=== PATIENT | female | born 1930 | race Caucasian/White ===

== ENCOUNTER 2017-11-24 17:41 | Emergency (ER) | payer MEDICARE, OTHER ==
--- NOTE | 2017-11-24 19:13 | ED ---
Throat Pain/Nasal Congestion - HPI Summary HPI Summary: This patient is an 86 year old F presenting to [facility] accompanied by daughter with a chief complaint of blurred vision that began yesterday. The patient rates the pain 0/10 in severity. Symptoms aggravated by nothing. Symptoms alleviated by nothing. Patient reports eye pain and eye swelling. Pt reports that she was discharged from [facility] yesterday following a stay in the ICU for CHF. Daughter reports that patient fell on 11/03/2017 and then began experiencing difficulty swallowing and dyspnea causing her to seek evaluation at [facility]. Pt believes she was inadvertently given Prednisone eye drops during her stay in the ICU. - History of Current Complaint Chief Complaint: EDEyeProblem Time Seen by Provider: 11/24/17 19:01 Hx Obtained From: Patient, Family/Entertainment Usher Onset/Duration: Sudden Onset, Lasting Days, Still Present Severity: Mild Cough: None - Allergies/Home Medications Allergies/Adverse Reactions: Allergies Allergy/AdvReac Type Severity Reaction Status Date / Time No Known Allergies Allergy Verified 11/24/17 17:48 PMH/Surg Hx/FS Hx/Imm Hx Previously Healthy: No Endocrine/Hematology History: Denies: Hx Diabetes Cardiovascular History: Reports: Hx Congestive Heart Failure, Hx Hypertension - Immunization History Immunizations Up to Date: Yes Infectious Disease History: No Infectious Disease History: Denies: Traveled Outside the [place] in Last 30 Days - Social History Occupation: Retired Lives: With Family Alcohol Use: None Hx Substance Use: No Substance Use Type: Reports: None Hx Tobacco Use: No Smoking Status (MU): Never Smoked Tobacco Review of Systems Negative: Fever Positive: Blurred Vision, Other - Negative eye pain and eye swelling All Other Systems Reviewed And Are Negative: Yes Physical Exam - Summary Physical Exam Summary: Appearance: Well-appearing, Well-nourished, lying in bed comfortably Skin: Warm, dry, no obvious rash Eyes: sclera anicteric, no conjunctival pallor. Pupils are equal and round, reactive to light. Extraocular movements are intact. There is no haziness in the anterior chamber. There is no sign of conjunctivitis. Visual acuity was measured at approximately 20/40 in each eye. ENT: mucous membranes moist, pharynx appears normal Neck: Supple, nontender Respiratory: Clear to auscultation, no signs of respiratory distress Cardiovascular: Normal S1, S2. No murmurs. Normal distal pulses in tibial and radial bilaterally. Abdomen: Soft, nontender, normal active bowel sounds present Musculoskeletal: Normal, Strength/ROM Intact Neurological: A&Ox3, awake and alert, mentation is normal, speech is fluent and appropriate Psychiatric: affect is normal, does not appear anxious or depressed Triage Information Reviewed: Yes Vital Signs On Initial Exam: Initial Vitals Temp Pulse Resp BP Pulse Ox 98.4 F 89 20 143/83 93 11/24/17 17:44 11/24/17 17:44 11/24/17 17:44 11/24/17 17:44 11/24/17 17:44 Vital Signs Reviewed: Yes Diagnostics - Vital Signs Vital Signs Temp Pulse Resp BP Pulse Ox 11/24/17 17:44 98.4 F 89 20 143/83 93 - Laboratory Lab Statement: Any lab studies that have been ordered have been reviewed, and results considered in the medical decision making process. EENT Course/Dx - Diagnoses Provider Diagnoses: Vision problem Discharge - Sign-Out/Discharge Documenting (check all that apply): Patient Departure - Discharge Plan Condition: Good Disposition: HOME Referrals: No Primary Care Phys,NOPCP [Primary Care Provider] - Additional Instructions: I do not see any emergent problem with your eyes. I suspect the decline in far acuity may be related to fluid shifts in your system while you were treated for congestive heart failure. It should resolve on its own over the next few days. If not, contact your eye doctor as he or she has better equipment and expertise to evaluate your problem than we have here in the ED. - Billing Disposition and Condition Condition: GOOD Disposition: Home - Attestation Statements Document Initiated by Scribe: Yes Documenting Scribe: Rocío Beasley Provider For Whom Rosemary is Documenting (Include Credential): Jorge Yeh MD Scribe Attestation: I, Rocío Beasley, scribed for Jorge Yeh MD on 11/24/17 at 1917. Scribe Documentation Reviewed: Yes Provider Attestation: The documentation as recorded by the Rocío jacobo accurately reflects the service I personally performed and the decisions made by me, Jorge Yeh MD
[2017-11-24 19:34] VITALS: BP 128/75
== END 2017-11-24 19:46 | disposition home or self-care (01) ==
LOC: ED 17:41
DX: H53.8 Other visual disturbances (principal); Z91.81 History of falling
CPT/HCPCS: 99282

== ENCOUNTER 2017-11-27 04:18 | Observation (INO) | payer OTHER ==
--- NOTE | 2017-11-27 05:06 | ED ---
HPI Chest Pain - HPI Summary HPI Summary: Pt is a 86 year old female presenting to the ED with a chief complaint of. Pt tried going to bed at around 2200 or so, could not fall asleep, had some chest and abd pain at around midnight. She got up and sat in her chair, the pain sort of went away, so she thought she could lay down and go to sleep, then she had pain in her upper back. Pt did not feel sweaty, nausea, or SOB. The pt has not had any other pain since the initial episode, which lasted about 10 minutes. The pt denies any trouble like this before, but she does note that she has CHF. The pts daughter relayed information about her past issues with pain medicines that she was prescribed, including edema and trouble swallowing. - History of Current Complaint Chief Complaint: EDAbdPain Hx Obtained From: Patient, Family/Nursing Manager - daughter Onset/Duration: Started Hours Ago, Resolved Timing: Lasting Minutes - 10-15 Initial Severity: Mild Current Severity: Mild Pain Intensity: 0 Pain Scale Used: 0-10 Numeric Chest Pain Radiates: Yes Chest Pain Radiates To:: Back Aggravating Factor(s): Nothing Alleviating Factor(s): Rest Associated Signs and Symptoms: Positive: Chest Pain, Back Pain. Negative: Fever , Diaphoresis, Nausea - Allergy/Home Medications Allergies/Adverse Reactions: Allergies Allergy/AdvReac Type Severity Reaction Status Date / Time No Known Allergies Allergy Verified 11/24/17 17:48 Home Medications: Home Medications Aspirin [Shira Aspirin EC Low Dose 81 MG] 81 mg PO DAILY 11/27/17 [History Confirmed 11/27/17] Biotin 5,000 mcg PO DAILY 11/27/17 [History Confirmed 11/27/17] Brimonidine P 0.15%(NF) [Alphagan P 0.15%(NF)] 1 drop BOTH EYES BID 11/27/17 [ History Confirmed 11/27/17] Brinzolamide 1% OPHTH SHIMA(NF) [Azopt 1% OPHTH SHIMA(NF)] 1 drop LEFT EYE BID 11/27 [History Confirmed 11/27/17] Calcium Carbonate/Vitamin D3 [Calcium 600-Vit D3 500 Softgel] 2 cap PO DAILY 05/15 [History Confirmed 11/27/17] Furosemide 1 tab PO SEE INSTRUCTIONS 11/27/17 [History Confirmed 11/27/17] Levothyroxine TAB* 88 mcg PO SEE INSTRUCTIONS 11/27/17 [History Confirmed ] Levothyroxine TAB* [Synthroid 75 MCG TAB*] 75 mcg PO SEE INSTRUCTIONS 11/27/17 [ History Confirmed 11/27/17] Metoprolol Tartrate TAB* [Lopressor TAB*] 12.5 mg PO BID 11/27/17 [History Confirmed 11/27/17] Multivitamin [Multiple Vitamins] 1 tab PO DAILY 11/27/17 [History Confirmed 05/15] [place]-3 Fatty Acids/Fish Oil [[place] 3 1,000 mg Softgel] 2 cap PO DAILY 11/27/17 [History Confirmed 11/27/17] Potassium Chlor TAB* [Potassium Chlor TAB 20 MEQ*] 20 meq PO SEE INSTRUCTIONS [History Confirmed 11/27/17] Simvastatin 1 tab PO DAILY 11/27/17 [History Confirmed 11/27/17] Travoprost Z 0.004% OPHTH (NF) [Travatan Z 0.004% OPTH (NF)] 1 drop BOTH EYES BEDTIME 11/27/17 [History Confirmed 11/27/17] Warfarin Sodium 3 mg PO SEE INSTRUCTIONS 11/27/17 [History Confirmed 11/27/17] PMH/Surg Hx/FS Hx/Imm Hx Previously Healthy: No Endocrine/Hematology History: Denies: Hx Diabetes Cardiovascular History: Reports: Hx Congestive Heart Failure, Hx Hypertension - Immunization History Date of Tetanus Vaccine: unk Date of Influenza Vaccine: fall 2016 Infectious Disease History: No Infectious Disease History: Denies: Traveled Outside the [place] in Last 30 Days - Family History Known Family History: Positive: Hypertension - Social History Alcohol Use: None Hx Substance Use: No Substance Use Type: Reports: None Hx Tobacco Use: No Smoking Status (MU): Never Smoked Tobacco Review of Systems Negative: Fever Positive: Chest Pain Negative: Shortness Of Breath Positive: Abdominal Pain. Negative: Nausea All Other Systems Reviewed And Are Negative: Yes Physical Exam - Summary Physical Exam Summary: Appearance: Well-appearing, Well-nourished, lying in bed comfortably Skin: Warm, dry, no obvious rash Eyes: sclera anicteric, no conjunctival pallor ENT: mucous membranes moist, pharynx appears normal Neck: Supple, nontender Respiratory: Clear to auscultation, no signs of respiratory distress Cardiovascular: Normal S1, S2. No murmurs. Normal distal pulses in tibial and radial bilaterally. Abdomen: Soft, nontender, normal active bowel sounds present Musculoskeletal: Normal, Strength/ROM Intact Neurological: A&Ox3, awake and alert, mentation is normal, speech is fluent and appropriate Psychiatric: affect is normal, does not appear anxious or depressed Triage Information Reviewed: Yes Vital Signs On Initial Exam: Initial Vitals Temp Pulse Resp BP Pulse Ox 97.2 F 86 24 121/50 95 11/27/17 04:20 11/27/17 04:20 11/27/17 04:20 11/27/17 04:20 11/27/17 04:20 Vital Signs Reviewed: Yes Diagnostics - Vital Signs Vital Signs Temp Pulse Resp BP Pulse Ox 11/27/17 04:20 97.2 F 86 24 121/50 95 - Laboratory Result Diagrams: 11/29/17 05:44 11/29/17 05:44 Lab Statement: Any lab studies that have been ordered have been reviewed, and results considered in the medical decision making process. - EKG No standard instances Cardiac Rate: NL - 90 bpm EKG Rhythm: Atrial Fibrillation ST Segment: Normal Ectopy: None EKG Interpretation: Atrial fibrillation, rate 90 bpm. Chest Pain Course/Dx - Course Course Of Treatment: This is an 86-year-old woman was well until about 3 hours ago when she had developed the abrupt onset of chest discomfort radiating to the upper back. This lasted about 10 or 15 minutes and improved when she got up and sat in a chair. Since then it has not recurred. There are no other associated symptoms. She will be ruled out by serial enzymes. She appears quite stable at the present time and is pain-free, and thus does not require any specific therapy at the moment. - Diagnoses Provider Diagnoses: CHF (congestive heart failure), Chest pain, Afib Discharge - Sign-Out/Discharge Documenting (check all that apply): Patient Departure - Discharge Plan Condition: Fair Disposition: ADMITTED TO [facility] - Billing Disposition and Condition Condition: FAIR Disposition: Admitted to [facility] - Attestation Statements Document Initiated by Scribe: Yes Documenting Scribe: Serena Escobar Provider For Whom Aliciaibe is Documenting (Include Credential): Jorge Yeh MD. Scribe Attestation: I, Serena Escobar, scribed for Jorge Yeh MD. on 12/01/17 at 1030. Scribe Documentation Reviewed: Yes Provider Attestation: The documentation as recorded by the scribe, Serena Escobar accurately reflects the service I personally performed and the decisions made by me, Jorge Yeh MD.
[2017-11-27 06:19] LABS: ABS Basophils 0.1 10^3/ul (0-0.2); ABS Eosinophils 0.2 10^3/ul (0-0.6); ABS Lymphocytes 0.8 10^3/ul (1.0-4.8); ABS Monocytes 0.5 10^3/ul (0-0.8); ABS Neutrophils 4.2 10^3/ul (1.5-7.7); ABS Nucleated RBC 0 10^3/ul; Hematocrit 32 % (35-47); Hemoglobin 10.7 g/dl (12.0-16.0); Lymphocyte % 14.1 % (25-47); Mean Corpuscular HGB Conc 34 g/dl (31-36); Mean Corpuscular Hemoglobin 27 pg (27-31); Mean Corpuscular Volume 81 fL (80-97); Mean Platelet Volume 8.6 um3 (7.4-10.4); Nucleated Red Blood Cells % 0; Platelet Count 177 10^3/ul (150-450); Red Blood Count 3.94 10^6/ul (4.00-5.40); Red Cell Distribution Width 18 % (10.5-15); White Blood Count 5.8 10^3/ul (3.5-10.8)
[2017-11-27 06:22] LABS: EGFR Non-African American 51.7 (>60)
--- NOTE | 2017-11-27 07:02 | ED ---
Progress - Progress Note Progress Note: This patient was signed out from Dr. Yeh to Dr. Nino at 0700 on 11/27/17 CXR: limited evaluation of left base, possible left pleura effusion; CXR interpretation was completed by Dr. Nino. 0742 re-eval: Dr. Nino and patient discussed patient's Sx, treatment in ED so far, and plans for further care. Patient was recently discharged from a hospital in [place]. She states that she has never had chest pain before today at midnight and states she is not experiencing chest pain in the room. However, patient has Hx of CHF. PE showed 1+ LE edema and bibasilar crackles. In room, O2 stat was at 92%. Patient wants to be admitted. 0759 Dr. Perrin was consulted on patients case. She accepts patient for admission to [facility]. Re-Evaluation - Re-Evaluation First Eval Re-Evaluation Time: 07:42 Comment: Dr. Nino and patient discussed patient's Sx, treatment in ED so far , and plans for further care. Patient was recently discharged from a hospital in [place]. She states that she has never had chest pain before today at midnight and states she is not experiencing chest pain in the room. However, patient has Hx of CHF. PE showed 1+ LE edema and bibasilar crackles. In room, O2 stat was at 92%. Patient wants to be admitted. Course/Dx - Course Course Of Treatment: Patient with a history of recent admission for congestive heart failure with heavy fluid overload at that time. She didn't have chest pain though, days episode is different. She feels sufficiently scared would like to be admitted for evaluation of this. Troponin 2 has been negative. Minimal lower extremity edema and nondiagnostic EKG. Discussed with hospitalist who will admit. - Diagnoses Provider Diagnoses: CHF (congestive heart failure), Chest pain, Afib - Provider Notifications Discussed Care Of Patient With: Leisa Perrin Time Discussed With Above Provider: 07:59 Instructed by Provider To: Other - 0752 Dr. Perrin was consulted on patients case. She accepts patient for admission to [facility]. Discharge - Sign-Out/Discharge Documenting (check all that apply): Patient Departure - admit; Dr. Perrin agrees to accept patient for admission to [facility] , Receiving Sign-Out Signing out patient TO: Naeem Nino Receiving patient FROM: Jorge Yeh - Discharge Plan Condition: Fair Disposition: ADMITTED TO [facility] Referrals: Fabián Lamb MD [Primary Care Provider] - - Billing Disposition and Condition Condition: FAIR Disposition: Admitted to [facility] - Attestation Statements Document Initiated by Scribe: Yes Documenting Scribe: Nathan Brown Provider For Whom Scribe is Documenting (Include Credential): Naeem Nino MD Scribe Attestation: Nathan Ruff, scribed for Naeem Nino MD on 11/27/17 at 0942. Scribe Documentation Reviewed: Yes Provider Attestation: The documentation as recorded by the Nathan jacobo accurately reflects the service I personally performed and the decisions made by me, Naeem Nino MD
[2017-11-27] MEDS ORDERED: Nitroglycerin 2% OINT* 1 GM PAK TOPICAL ONE (07:52)
--- NOTE | 2017-11-27 08:51 | RAD ---
INDICATION: Chest pain COMPARISON: None. TECHNIQUE: Single AP portable view of the chest was obtained. FINDINGS: Image quality is compromised due to the relative inferiority of a portable chest x-ray. There is a mild degree of cardiomegaly. The heart and mediastinum otherwise are normal in contour. There is mild calcification overlying the arch of the aorta. The pulmonary vasculature appears mildly engorged and indistinct overlying the central lungs bilaterally. The gas pattern overlying the lower left hemithorax appears to be displacing the left lower lobe and causing compression. Visualized bones are normal for the patient's age. IMPRESSION: 1. Radiographic findings could be compatible with cardiogenic pulmonary vascular congestion in the correct clinical setting. 2. Suspected large hiatal hernia with associated compression of the left lower lobe. If it will influence clinical management superior characterization could be made with CT.
[2017-11-27] MEDS ORDERED: Furosemide IV* 10 MG/ML 2 ML VIAL (20 MG) IV ONE (10:33)
[2017-11-27 11:17] LABS: INR 2.9 (0.77-1.02)
[2017-11-27] MEDS: Aspirin EC TAB* 81 MG TAB.EC PO SCH (12:57)
[2017-11-27] MEDS: Warfarin TAB(*) 3 MG PO SCH (16:41)
[2017-11-27] MEDS: BRIMONIDINE P 0.15% BOTH EYES SCH (21:01)
[2017-11-27] MEDS: PTO: Brinzolamide 1% OPHTH SOL(NF) BTL LEFT EYE SCH (21:02)
[2017-11-27] MEDS: Latanoprost 0.005%* 2.5 ml BTL BOTH EYES SCH (21:02)
[2017-11-27] MEDS: Metoprolol Tartrate TAB* 25 MG PO SCH (21:02)
--- NOTE | 2017-11-27 21:10 | HP ---
CC: Dr. Lamb * HISTORY AND PHYSICAL: DATE OF ADMISSION: 11/27/17 PRIMARY CARE PROVIDER: Dr. Lamb. CHIEF COMPLAINT: Chest pain. HISTORY OF PRESENT ILLNESS: Ms. Rice is an 86-year-old female who has a history of atrial fibrillation, severe aortic stenosis, hypertension, and peripheral arterial disease who presented to the emergency room with complains of chest pain. The patient states that she was hospitalized from 11/14/17 through 11/23/17 at [facility]. At that point, the patient was treated for severe hyponatremia with the presenting sodium of 109 and CHF. The patient was also identified to have severe aortic stenosis with an aortic valve area of 0.39 cm. The patient was set up for an appointment for this coming Tuesday; however, reportedly, she has canceled this as she stated to her daughter that she does not want to go for this evaluation. The patient states that on the evening prior to admission while she was lying in bed, she felt pain across her chest. She described this as sharp and lasting only a couple of minutes. The patient got up and sat in the chair for a while. The pain went away. She went and lied back down at that point, then developed pain in her back. The patient' s daughter ultimately brought her to the emergency room to be evaluated. She has had no further chest pain. She does state that she has chronic shortness of breath and it does not seem to be any worse than usual. PAST MEDICAL HISTORY: 1. Hypertension. 2. Atrial fibrillation. 3. Glaucoma. 4. Peripheral arterial disease. PAST SURGICAL HISTORY: 1. Left lower extremity vascular procedure. The patient does not tell me about this, but it is listed on paperwork from [place]. 2. Left carotid endarterectomy. 3. Hysterectomy. 4. Bilateral cataract extractions. 5. Right arm surgery. MEDICATIONS: 1. Potassium chloride 20 mEq p.o. every other day on Lasix days. 2. Metoprolol tartrate 12.5 mg p.o. b.i.d. 3. Lasix 20 mg p.o. every other day. 4. Azopt 1 drop to the left eye b.i.d. 5. Biotin 500 mcg p.o. daily. 6. Aspirin 81 mg p.o. daily. 7. Simvastatin 20 mg p.o. daily. 8. Multivitamin 1 tab p.o. daily. 9. Calcium carbonate/D3 of 2 caps p.o. daily. 10. Amlodipine 5 mg p.o. daily. 11. [place]-3 fatty acid 2 caps p.o. daily. 12. Travatan Z 1 drop to both eyes at bedtime. 13. Alphagan P 1 drop to both eyes at bedtime. 14. Coumadin 3 mg p.o. all days of the week except for Tuesday when she takes 4.5 mg. 15. Levothyroxine 75 mcg alternating with 88 mcg every other day. ALLERGIES: No known med allergies. FAMILY HISTORY: Mom and dad are both . Dad had diabetes. The patient is not sure what her mom passed from. SOCIAL HISTORY: The patient is a lifelong nonsmoker. She does not drink alcohol. 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 She is . She has 4 children. She lives with her daughter, Fariha, who is also her healthcare proxy. REVIEW OF SYSTEMS: A complete 11-system review of systems is obtained. Pertinent positives and negatives are as per HPI and in addition, the patient does state that she has lower extremity edema; however, it is markedly better than prior to her last hospitalization and additionally, the patient states that she will intermittently have a difficult time swallowing. PHYSICAL EXAMINATION GENERAL: The patient is a well-developed thin elderly female, seen sitting up in the stretcher, in no acute distress. VITAL SIGNS: Blood pressure 129/55, pulse 78, respirations 23, temp 97.2, O2 sat 94% on room air. HEENT: Pupils are equal and round. There is evidence of prior cataract extraction. Extraocular muscles are intact. Oropharynx is clear. Oral mucosa is moist. The patient wears upper and lower dentures. NECK: There is no submandibular, cervical, or supraclavicular adenopathy. Thyroid is not enlarged. No thyroid nodules noted. PULMONARY: There are crackles heard diffusely about one-third of the way up bilaterally and in the right anterior chest. CARDIAC: Normal S1, S2. Regular rate and rhythm. I do not appreciate any murmurs. There is trace to 1+ bilateral lower extremity pitting edema. ABDOMEN: Bowel sounds are present. Abdomen is soft, nontender, nondistended. MUSCULOSKELETAL: There is no cyanosis or clubbing of the digits. There is full active range of motion of all 4 extremities. SKIN: Warm and dry. There are no rashes. NEUROLOGIC: Cranial nerves II through XII are grossly intact. Sensation is intact to light touch throughout. Strength is 5/5 and symmetric in both upper and lower extremities bilaterally. PSYCH: The patient is alert. She is oriented x3. Affect appears appropriate. DIAGNOSTIC STUDIES/LAB DATA: WBC 5.8, hemoglobin 10.7, hematocrit 32, platelets 177,000. INR 2.9. Sodium 131, potassium 3.5, chloride 94, CO2 of 28 , BUN 18, creatinine 1.01, glucose 98, calcium 9.0. Bilirubin 1.0, AST 35, ALT 27, alk phos 94, troponin 0.03 down to 0.01, BNP 674, albumin 3.6. EKG reveals atrial fibrillation with T-wave inversions in the inferior leads and perhaps slight ST depression in the lateral leads. There is no prior EKG to compare. Chest x-ray reveals cardiogenic pulmonary vascular congestion in the correct clinical setting. There is a suspected large hiatal hernia with the associated compression of the left lower lobe. ASSESSMENT AND PLAN: Ms. Rice is an 86-year-old female who was hospitalized at [facility] from 11/14/17 through 11/23/17, where she was treated for severe hyponatremia and diastolic congestive heart failure who developed complaints of chest pain on the evening prior to admission and was ultimately brought to the emergency room for evaluation. 1. Chest pain. I did not believe this represents an acute coronary syndrome. The differential diagnosis includes pain related to congestive heart failure versus her aortic stenosis versus gastrointestinal versus musculoskeletal. I would be leaning towards congestive heart failure or related to her aortic stenosis due to her history. The patient will receive a dose of Lasix in the emergency room. Ultimately, she needs evaluation for a TAVR; however, it is unclear if the patient wishes to pursue this. If she does not, I will recommend hospice to the patient and her daughter. 2. Mild diastolic congestive heart failure exacerbation. The patient as above will be receiving a dose of IV Lasix. Her fluid status will be assessed tomorrow at which time she will likely be resumed on her usual dose of Lasix. Her BNP at [facility] was typically in the 1200 range. Here it is only 674. It is unclear if this is related to differences in the lab or truly improvement in her symptoms. The patient should establish with a chart reader and follow along closely for further recommendations and management. 3. Atrial fibrillation. The patient's heart rate is controlled. She will continue on her usual dose of metoprolol and Coumadin as her INR is therapeutic. 4. Peripheral arterial disease. Continue aspirin and statin. 5. DVT prophylaxis. According to the Adult Thrombosis Prophylaxis Risk Factor Assessment Guide, the patient has a total risk factor score of 5, making her the highest risk. She is already on Coumadin with the therapeutic INR, and this will act as her DVT prophylaxis. 6. Code status is full and this was discussed with both the patient and her daughter. TIME SPENT: Sixty-five minutes were spent admitting this patient. [id number] #: [id number] BERT
[2017-11-28 05:32] LABS: INR 3.41 (0.77-1.02)
[2017-11-28] MEDS ORDERED: Levothyroxine TAB* 88 MCG TAB PO SCH (06:00)
[2017-11-28] MEDS: PTO: Brinzolamide 1% OPHTH SOL(NF) BTL LEFT EYE SCH ×2 (08:02→21:10)
[2017-11-28] MEDS: Metoprolol Tartrate TAB* 25 MG PO SCH ×2 (08:08→21:06)
[2017-11-28] MEDS: Atorvastatin* 10 MG TAB PO SCH (08:08)
[2017-11-28] MEDS: Prenatal Vitamin TAB PO SCH (08:08)
[2017-11-28] MEDS: Aspirin EC TAB* 81 MG TAB.EC PO SCH (08:08)
[2017-11-28] MEDS: amLODIPine TAB* 5 MG PO SCH (08:08)
[2017-11-28] MEDS: BRIMONIDINE P 0.15% BOTH EYES SCH ×2 (08:10→21:05)
--- NOTE | 2017-11-28 08:34 | PN ---
Subjective Date of Service: 11/28/17 Interval History: Patient reports that she still feels short of breath, states that she feels better than yesterday. Denies chest pain. Denies abd pain n/v/d. c/o red, swollen tender area to right antecubital, states that she has had swelling and pain since her recent hospitalization at [place]. Family History: Unchanged from Admission Social History: Unchanged from Admission Past Medical History: Unchanged from Admission Objective Active Medications: Amlodipine Besylate (Norvasc Tab*) 5 mg PO DAILY [facility] Last Admin: 11/28/17 08:08 Dose: 5 mg Aspirin (Aspirin Ec Tab*) 81 mg PO DAILY [facility] Last Admin: 11/28/17 08:08 Dose: 81 mg Atorvastatin Calcium (Lipitor*) 10 mg PO DAILY [facility] Last Admin: 11/28/17 08:08 Dose: 10 mg Brimonidine Tartrate (Alphagan P 0.15%(Nf)) 1 drop BOTH EYES BID [facility] Last Admin: 11/28/17 08:10 Dose: 1 drop Brinzolamide (Azopt 1% Ophth [place](Nf)) 1 drop LEFT EYE BID [facility] Last Admin: 11/28/17 08:02 Dose: Not Given Latanoprost (Xalatan 0.005%*) 1 drop BOTH EYES BEDTIME [facility]; Protocol Last Admin: 11/27/17 21:02 Dose: Not Given Levothyroxine Sodium (Synthroid Tab*) 88 mcg PO EVERY OTHER DAY@0600 [facility] Last Admin: 11/28/17 05:58 Dose: 88 mcg Levothyroxine Sodium (Synthroid Tab*) 75 mcg PO EVERY OTHER DAY@0600 [facility] Metoprolol Tartrate (Lopressor Tab*) 12.5 mg PO BID [facility] Last Admin: 11/28/17 08:08 Dose: 12.5 mg Multivitamins ( Vitamin Tab*) 1 tab PO DAILY [facility] Last Admin: 11/28/17 08:08 Dose: 1 tab Pharmacy Profile Note (Coumadin Daily Reminder*) 0 note FOLLOW UP 1700 [facility] Last Admin: 11/27/17 16:41 Dose: 1 note Warfarin Sodium (Coumadin Tab(*)) 3 mg PO SuMoTuThFrSa@1700 [facility]; Protocol Last Admin: 11/27/17 16:41 Dose: 3 mg Warfarin Sodium (Coumadin Tab(*)) 4.5 mg PO We@1700 [facility]; Protocol Vital Signs - 8 hr 11/28/17 11/28/17 05:36 07:58 Temperature 98.5 F 97.5 F Pulse Rate 74 88 Respiratory 18 20 Rate Blood Pressure 118/52 128/57 (mmHg) O2 Sat by Pulse 94 96 Oximetry Oxygen Devices in Use Now: None Appearance: appears comfortable sittingin the chair, no acute distress Eyes: No Scleral Icterus Ears/Nose/Mouth/Throat: Clear Oropharnyx, Mucous Membranes Moist Neck: NL Appearance and Movements; NL JVP, Trachea Midline Respiratory: Symmetrical Chest Expansion and Respiratory Effort, Clear to Auscultation Cardiovascular: NL Sounds; No Murmurs; No JVD, - - +1 pitting edema to lower legs Abdominal: NL Sounds; No Tenderness; No Distention Extremities: No Clubbing, Cyanosis Skin: - - right AC area with swelling and erythema, warm to the touch, firm Neurological: Alert and Oriented x 3 Nutrition: Taking PO's Result Diagrams: 11/27/17 05:35 11/28/17 05:01 Assess/Plan/Problems-Billing Assessment: Ms. Denton is an 86 y.o. female with a past medical history of CHF, Afib, aortic stenosis and PAD who presented to the ER with complaints of chest pain. Patient was recently seen and treated at [place] for CHF. - Patient Problems (1) Chest pain Current Visit: Yes Status: Acute Code(s): R07.9 - CHEST PAIN, UNSPECIFIED SNOMED Code(s): 25873355 Comment: - No chest pain overnight - Troponins - negative - susppect that her pain may be related to CHF and Aortic stenosis- Patient would like to proceed with TAVR evaluation- this can be done as an outpatient (2) CHF (congestive heart failure) Current Visit: Yes Status: Acute Code(s): I50.9 - HEART FAILURE, UNSPECIFIED SNOMED Code(s): 43113535 Comment: -reports breathing is better today - will resume home lasix (3) Aortic stenosis Current Visit: Yes Status: Acute Code(s): I35.0 - NONRHEUMATIC AORTIC (VALVE ) STENOSIS SNOMED Code(s): 76230554 Comment: - would like to be evaluated for TAVR valve (4) Arm pain Current Visit: Yes Status: Acute Comment: Right arm with erythema, swelling and tenderness will get ultrasound of Right arm (5) Afib Current Visit: Yes Status: Acute Code(s): I48.91 - UNSPECIFIED ATRIAL FIBRILLATION SNOMED Code(s): 13266415 Comment: Continue lopressor patient is rate controlled - HR 63 this AM - Continue coumadin (6) DVT prophylaxis Current Visit: Yes Status: Acute Code(s): [id number] - SNOMED Code(s): 309160474 Comment: Coumadin (7) Full code status Current Visit: Yes Status: Acute Code(s): Z78.9 - OTHER SPECIFIED HEALTH STATUS SNOMED Code(s): 434885556 Status and Disposition: Inpatient - possible discharge in the AM
[2017-11-28] MEDS ORDERED: Potassium Chlor TAB* 10 MEQ TAB.ER PO ONE (09:39)
[2017-11-28] MEDS ORDERED: Furosemide TAB* 20 MG PO SCH (13:00)
--- NOTE | 2017-11-28 16:38 | RAD ---
Indication: Right upper extremity swelling. Real-time sonography of the right upper extremity was performed. In the antecubital fossa there appears to be an occluded basilic vein extending from the distal humerus to the right proximal forearm. The right subclavian vein, right axillary vein, right the brachial vein, right radial vein, right ulnar vein appear patent and compressible. The left subclavian vein appears patent. IMPRESSION: Superficial venous thrombosis involving the basilic vein in the antecubital fossa from the distal upper arm to the proximal forearm. No evidence of deep venous thrombosis is noted otherwise.
[2017-11-28] MEDS: Warfarin TAB(*) 3 MG PO SCH (17:16)
[2017-11-28] MEDS: Cephalexin CAP* 500 MG PO SCH (21:06)
[2017-11-28] MEDS: Latanoprost 0.005%* 2.5 ml BTL BOTH EYES SCH (21:08)
[2017-11-29] MEDS ORDERED: Levothyroxine TAB* 75 MCG TAB PO SCH (06:00)
[2017-11-29 06:11] LABS: ABS Basophils 0.1 10^3/ul (0-0.2); ABS Eosinophils 0.3 10^3/ul (0-0.6); ABS Lymphocytes 0.8 10^3/ul (1.0-4.8); ABS Monocytes 0.8 10^3/ul (0-0.8); ABS Neutrophils 4.3 10^3/ul (1.5-7.7); ABS Nucleated RBC 0 10^3/ul; Eosinophil % 4.3 % (0-6); Hematocrit 32 % (35-47); Hemoglobin 10.6 g/dl (12.0-16.0); Lymphocyte % 12.8 % (25-47); Mean Corpuscular HGB Conc 33 g/dl (31-36); Mean Corpuscular Hemoglobin 27 pg (27-31); Mean Corpuscular Volume 82 fL (80-97); Mean Platelet Volume 8.6 um3 (7.4-10.4); Nucleated Red Blood Cells % 0.1; Platelet Count 191 10^3/ul (150-450); Red Blood Count 3.89 10^6/ul (4.00-5.40); Red Cell Distribution Width 18 % (10.5-15); White Blood Count 6.1 10^3/ul (3.5-10.8)
[2017-11-29 06:16] LABS: INR 2.47 (0.77-1.02)
[2017-11-29 06:30] LABS: EGFR Non-African American 45.4 (>60)
[2017-11-29 08:05] VITALS: BP 96/41
[2017-11-29] MEDS: Cephalexin CAP* 500 MG PO SCH ×2 (09:21→13:45)
[2017-11-29] MEDS: Prenatal Vitamin TAB PO SCH (09:21)
[2017-11-29] MEDS: Aspirin EC TAB* 81 MG TAB.EC PO SCH (09:21)
[2017-11-29] MEDS: BRIMONIDINE P 0.15% BOTH EYES SCH (09:21)
[2017-11-29] MEDS: Atorvastatin* 10 MG TAB PO SCH (09:21)
[2017-11-29] MEDS: PTO: Brinzolamide 1% OPHTH SOL(NF) BTL LEFT EYE SCH (09:24)
[2017-11-29] MEDS: amLODIPine TAB* 5 MG PO SCH (09:25)
[2017-11-29] MEDS: Metoprolol Tartrate TAB* 25 MG PO SCH (09:25)
--- NOTE | 2017-11-29 16:50 | PN ---
Subjective Date of Service: 11/29/17 Interval History: continue to c/o mild tenderness to right AC, denies chest pain or shortness of breath. Denies abd pain n/v/d. Denies headache or dizziness. Family History: Unchanged from Admission Social History: Unchanged from Admission Past Medical History: Unchanged from Admission Objective Oxygen Devices in Use Now: None Appearance: appears comfortable sitting in the chair, no acute distress. Eyes: No Scleral Icterus Ears/Nose/Mouth/Throat: Clear Oropharnyx, Mucous Membranes Moist Neck: NL Appearance and Movements; NL JVP, Trachea Midline Respiratory: Symmetrical Chest Expansion and Respiratory Effort, Clear to Auscultation Cardiovascular: NL Sounds; No Murmurs; No JVD, RRR, No Edema Abdominal: NL Sounds; No Tenderness; No Distention Extremities: No Clubbing, Cyanosis, - - mild bilat lower ext pitting edema, Skin: No Rash or Ulcers, - - right AC with redness, swelling and warm to touch, radial pulse +2, sensation intact to hand and lower arm, no swelling noted to lower right arm. Neurological: Alert and Oriented x 3 Nutrition: Taking PO's Result Diagrams: 11/29/17 05:44 11/29/17 05:44 Assess/Plan/Problems-Billing Assessment: Ms. Denton is an 86 y.o. female with a past medical history of CHF, Afib, aortic stenosis and PAD who presented to the ER with complaints of chest pain. Patient was recently seen and treated at [place] for CHF. - Patient Problems (1) Chest pain Status: Acute Code(s): R07.9 - CHEST PAIN, UNSPECIFIED SNOMED Code(s): 54018968 Comment: - No chest pain overnight - Troponins - negative - susppect that her pain may be related to CHF and Aortic stenosis- Patient would like to proceed with TAVR evaluation- this can be done as an outpatient (2) CHF (congestive heart failure) Status: Acute Code(s): I50.9 - HEART FAILURE, UNSPECIFIED SNOMED Code(s): 54289762 Comment: -reports breathing has improved - will resume home lasix every other day (3) Aortic stenosis Status: Acute Code(s): I35.0 - NONRHEUMATIC AORTIC (VALVE) STENOSIS SNOMED Code(s): 70082825 Comment: - would like to be evaluated for TAVR valve - keep appointments previously scheduled with cardiology (4) Arm pain Status: Acute Comment: Right arm with erythema, swelling and tenderness will get ultrasound of Right arm- shows thrombus in the baslic vein, no mass or abscess - will start on keflex for 5 days to cover cellulitis as the arm is red, warm and tender to the touch. (5) Afib Status: Acute Code(s): I48.91 - UNSPECIFIED ATRIAL FIBRILLATION SNOMED Code( s): 84652112 Comment: Continue lopressor patient is rate controlled - HR 63 this AM - Continue coumadin (6) DVT prophylaxis Status: Acute Code(s): IIM1480 - SNOMED Code(s): 292315073 Comment: Coumadin (7) Full code status Status: Acute Code(s): Z78.9 - OTHER SPECIFIED HEALTH STATUS SNOMED Code(s) : 778675374 Status and Disposition: discharge home
[2017-11-29] MEDS ORDERED: Warfarin TAB(*) 3 MG PO SCH (17:00)
[2017-11-30] MEDS ORDERED: Warfarin TAB(*) 3 MG PO SCH (17:00)
--- NOTE | 2017-12-01 22:42 | DS ---
CC: Dr. Lamb * DISCHARGE SUMMARY: DATE OF ADMISSION: 11/27/17 DATE OF DISCHARGE: 11/29/17 PROVIDER: Terrence Duarte NP PRIMARY CARE PROVIDER: Dr. Lamb ATTENDING PROVIDER: Leisa Perrin MD * (DICTATED BY TERRENCE DUARTE NP) PRIMARY DIAGNOSES: 1. Congestive heart failure. 2. Chest pain. SECONDARY DIAGNOSES: 1. Hypertension. 2. Atrial fibrillation. 3. Glaucoma. 4. Peripheral arterial disease. STUDIES COMPLETED WHILE IN THE HOSPITAL: She has chest x-ray on 11/27/17, radiologist impression: 1. Radiographic findings could be comparable with cardiogenic pulmonary vascular congestion. 2. Suspect large hiatal hernia with associated compression of the left lower lobe, it will influence clinical management. Superior characterization should be made with a CT. She had an electrocardiogram, which showed atrial fibrillation at a rate of 90. She had an ultrasound of soft tissue, radiologist impression: Superficial venous thrombosis involving the basilic vein of the antecubital fossa from the distal upper arm to the proximal forearm. No evidence of deep vein thrombosis is noted. DISCHARGE MEDICATIONS: New home medications: 1. Keflex 500 mg 4 times a day x5 days. Continued home medications: 1. Potassium 20 mEq p.o. every other day. 2. Metoprolol 12.5 mg p.o. b.i.d. 3. Furosemide 20 mg every other day. 4. Azopt 1% one drop to left eye b.i.d. 5. Biotin 1000 mcg p.o. daily. 6. Aspirin 81 mg p.o. daily. 7. Simvastatin one tablet p.o. daily. 8. Multivitamin one tablet p.o. daily. 9. Calcium carbonate two cap p.o. daily. 10. [place]-3 two caps p.o. daily. 11. Travatan Z 0.004% ophthalmic one drop both eyes at bedtime. 12. Alphagan 0.15% one drop both eyes b.i.d. 13. Warfarin 3 mg p.o. 14. Levothyroxine 88 mcg every other day. 15. Levothyroxine 75 mcg every other day. HISTORY OF PRESENT ILLNESS AND HOSPITAL COURSE: Ms. Rice is an 86-year-old female with a past medical history significant for atrial fibrillation, severe aortic stenosis, hypertension, and peripheral artery disease, who presented to the emergency room with the complaints of chest pain. She states that she was hospitalized 11/14/17, through 11/23/17, at [facility]. At that point, they treated her for hyponatremia when she presented with a sodium of 109 and congestive heart failure. The patient was also identified to have severe aortic stenosis with an aortic valve area of 0.39 cm. The patient was set up for an appointment this coming Tuesday, but reportedly cancelled that appointment. The patient states on the evening prior to admission while she was lying on bed, she had pain in her chest. She describes that as sharp pain lasting only a couple of minutes. The patient states that she sat up on the chair for a while and the pain went away. She laid back down in bed and at some point then developed pain in her back. She was brought to the emergency room by her daughter for further evaluation. While in the emergency room, the patient has had no further chest pain. She does report that she has some chronic shortness of breath and it does not seem to be any worse or normal. The patient was evaluated in the emergency room. She had routine lab work drawn. Her troponins were negative. She did have a chest x-ray that was concerning for pulmonary congestion. The patient was admitted to the hospital. She was observed on telemetry. She had no further chest pain. She was given some IV Lasix for the lung condition, which improved her shortness of breath. On the day of discharge, the patient reports that she is feeling well. She denies any chest pain or shortness of breath. REVIEW OF SYSTEMS: There has been no fever or chills. No unintended weight loss. There was no chest pain or shortness of breath. She denies any cough or congestion. She denies any nausea, vomiting, or diarrhea. She denies any abdominal pain. No gross hematuria or dysuria. She has no weakness. She denies any acute visual changes. She denies any dysphagia. She denies any arthralgias or myalgias. She does complain of redness and swelling to her right antecubital fossa. Extremities: There is no cyanosis or edema. Skin: She does again have redness and swelling to the right antecubital fossa that is warmth to touch. It is tender to palpation. PHYSICAL EXAMINATION: HEENT: Headed is atraumatic, normocephalic. Eyes: EOMs are intact. Sclerae anicteric and not pale. Oral mucosa appears to be moist. Neurologic: She is awake, alert, and oriented x3. She is able to move all 4 extremities with 5/5 strength. Pedal pulses and posterior tibial pulses are +2 bilaterally. Radial pulses are +2 bilaterally. She does have mild 1+ pitting edema noted to her lower extremities. There is no swelling to the right lower arm. Her right radial pulse is intact at +2. She does have some generalized ecchymotic areas noted to bilateral arms. Abdomen: Soft and nontender. Bowel sounds are active x4. Lungs are diminished bilaterally. There is no wheezes, rales, or rhonchi. Cardiac: S1 and S2, is irregular rate and rhythm. Right antecubital fossa with swelling, redness and warmth to touch. Tenderness with palpation. At this time, Ms. Rice is stable for discharge home. Vital signs are as follows: Blood pressure 96/41, temperature was 98.3, heart rate was 78, respirations were 22, O2 saturation 93% on room air. DISCHARGE PLAN: Ms. Rice will be discharged back home. Activity as tolerated. 1. Chest pain. I suspect that her chest pain is related to her severe aortic stenosis. I would recommend she follow up with Cardiology as previously scheduled. She does report she has a Cardiology appointment in next. I recommend that she keep the Cardiology appointment. Her troponins were negative throughout her hospitalization. She did not have any ectopy on the monitor. She was in atrial fibrillation during this hospitalization. She had no further chest pain throughout her hospitalization. 2. She did have mild congestive heart failure and was treated with Lasix IV, which improved her symptoms of shortness of breath. I recommend that she do daily weights at home. Continue on our heart-healthy, low-sodium diet. She should continue taking her Lasix every other day and she should continue taking her potassium as well every other day. Again, I recommend that she follow up with Cardiology as previously scheduled. The patient and daughter verbalized understanding. I did stop her home amlodipine and the patient was instructed not to continue taking her amlodipine until she follows up with her primary care provider as her blood pressure during her hospitalization was low at 96 systolic blood pressure. 3. Cellulitis. She does have right antecubital fossa cellulitis, which is likely a thrombophlebitis as her ultrasound did show superficial occlusion to the basilic vein with thrombus extending from her distal upper arm to the proximal forearm. The patient was instructed to take Keflex 500 mg 4 times a day x5 days. She could use warm or cold packs as needed for pain and she can take [id number] Tylenol as needed for pain. The patient should follow up with her primary care provider in 4-7 days. She should follow up with Cardiology as previously scheduled. The patient was instructed to return to the emergency room for any severe shortness of breath or chest pain or any other concerning symptoms. The patient verbalized understanding. This is a summarization of her hospitalization. If further details are needed, please obtain her entire medical record. TIME SPENT: Time spent on this discharge was approximately 60 minutes, greater than half the time was spent with the patient discussing discharge plan and instructions. CONDITION ON DISCHARGE: Stable. TERRENCE DUARTE NP [id number]/[facility] #: [id number] BERT
== END 2017-11-29 16:00 | disposition home or self-care (01) ==
LOC: ED 04:18 → MEDTELE 10:33
PROVIDERS: ADMIT Hospitalist; ATTEND Hospitalist
DX: I50.30 Unspecified diastolic (congestive) heart failure (principal); I35.0 Nonrheumatic aortic (valve) stenosis; R07.9 Chest pain, unspecified; I48.91 Unspecified atrial fibrillation; I10 Essential (primary) hypertension; H40.9 Unspecified glaucoma; I73.9 Peripheral vascular disease, unspecified; Z79.82 Long term (current) use of aspirin; Z79.01 Long term (current) use of anticoagulants
CPT/HCPCS: 36415; 71045; 80048; 80053; 83880; 84484; 85025; 85610; 93005; 96374; 96375; 99285; A9270-GY; G0378; J1940

== ENCOUNTER 2018-06-23 00:40 | Inpatient (IN) | payer OTHER ==
[2018-06-23] MEDS ORDERED: oxyCODONE/Acetamin 5/325 MG* TAB PO ONE (01:45)
--- NOTE | 2018-06-23 01:53 | ED ---
Head Injury - HPI Summary HPI Summary: This patient is a 87 year old female presenting to [facility] accompanied by daughter with a chief complaint of rib pain and head pain since 2 hours ago s/p mechanical fall. Patient states she went up to turn off the light when she lost her balance and hit her head on the door frame. Patient denies any loss of consciousness. Patient states that she is currently on Coumadin. The pain is rated 8/10 in severity and worse near her ribs. Patient denies abd pain. Symptoms aggravated by nothing. Symptoms alleviated by nothing - History Of Current Complaint Chief Complaint: EDHeadInjury Stated Complaint: FALL, HIT HEAD AND RIBS PER PT Time Seen by Provider: 06/23/18 01:35 Hx Obtained From: Patient Mechanism Of Injury: Fall From A Standing Position Onset/Duration: Started Hours Ago, Still Present Onset of Pain: Immediate Severity Currently: Severe Severity Initially: Severe Pain Intensity: 8 Pain Scale Used: 0-10 Numeric Location: Diffuse Associated Signs And Symptoms: Negative - abd pain, Other: - rib pain Anticoagulant Therapy: Coumadin - Allergies/Home Medications Allergies/Adverse Reactions: Allergies Allergy/AdvReac Type Severity Reaction Status Date / Time No Known Allergies Allergy Verified 06/23/18 00:49 Home Medications: Home Medications Triamterene/Hydrochlorothiazid [Triamterene/Hydrochloroth 50-25 mg] 1 cap PO DAILY 06/23/18 [History Confirmed 06/23/18] PMH/Surg Hx/FS Hx/Imm Hx Previously Healthy: No Endocrine/Hematology History: Denies: Hx Diabetes Cardiovascular History: Reports: Hx Congestive Heart Failure, Hx Hypertension, Other Cardiovascular Problems/Disorders - A FIB-aortic valve impairment Musculoskeletal History: Reports: Hx Arthritis, Hx Back Problems Sensory History: Reports: Hx Contacts or Glasses Denies: Hx Hearing Aid Opthamlomology History: Reports: Hx Contacts or Glasses - Immunization History Date of Tetanus Vaccine: unk Date of Influenza Vaccine: fall 2016 Infectious Disease History: No Infectious Disease History: Denies: Traveled Outside the [place] in Last 30 Days - Family History Known Family History: Positive: Hypertension - Social History Lives: With Family Alcohol Use: None Hx Substance Use: No Substance Use Type: Reports: None Hx Tobacco Use: No Smoking Status (MU): Never Smoked Tobacco Review of Systems Negative: Fever Negative: Abdominal Pain Positive: Other - rib pain Positive: Headache All Other Systems Reviewed And Are Negative: Yes Physical Exam - Summary Physical Exam Summary: Appearance: Well-appearing, Well-nourished, elderly woman lying in bed, appears to be in pain Skin: Warm, dry, no obvious rash. Large right forehead hematoma with abrasion, no laceration. No other head trauma noted. Eyes: sclera anicteric, no conjunctival pallor ENT: mucous membranes moist, pharynx appears normal Neck: Supple, nontender Respiratory: Somewhat tachypnic, Lung sounds clear, but splinting left side Cardiovascular: Normal S1, S2. No murmurs. Normal distal pulses in tibial and radial bilaterally. Abdomen: Soft, nontender, normal active bowel sounds present Musculoskeletal: Strength/ROM Intact. Focal tenderness to palpation in the right lateral lower chest Neurological: A&Ox3, awake and alert, mentation is normal, speech is fluent and appropriate, Good ROM of neck Psychiatric: affect is normal, does not appear anxious or depressed Triage Information Reviewed: Yes Vital Signs On Initial Exam: Initial Vitals Temp Pulse Resp BP Pulse Ox 98.1 F 87 18 130/84 93 06/23/18 00:46 06/23/18 00:46 06/23/18 00:46 06/23/18 00:46 06/23/18 00:46 Vital Signs Reviewed: Yes Diagnostics - Vital Signs Vital Signs Temp Pulse Resp BP Pulse Ox 06/23/18 00:46 98.1 F 87 18 130/84 93 - Laboratory Result Diagrams: 06/23/18 06:12 06/23/18 02:15 Lab Statement: Any lab studies that have been ordered have been reviewed, and results considered in the medical decision making process. - Radiology Rib & Chest XR Radiology Interpretation Completed By: ED Physician Summary of Radiographic Findings: Rib & Chest XR reveals, per ED physician, single rib fracture, minimally displaced, associated lung appears normal. Pending official report. - CT CT Chest CT Interpretation Completed By: Radiologist Summary of CT Findings: CT Chest reveals, per radiologist, IMPRESSION: 1. There are mildly displaced fractures of the right 10th and 11th ribs with an overlying small hemothorax. Question trace associated pneumothorax. 2. There is scattered patchy airspace opacities noted. ED physician has reviewed this radiology report. CT C-Spine CT Interpretation Completed By: Radiologist Summary of CT Findings: CT C-Spine reveals, per radiologist, IMPRESSION: Vertebral body height is maintained. Spinal alignment is maintained. No evidence of fracture or displacement. ED physician has reviewed this radiology report. CT Brain CT Interpretation Completed By: Radiologist Summary of CT Findings: CT Brain reveals, per radiologist, IMPRESSION: 1. Small focus of acute extra axial hemorrhage in right frontal region. 2. Age-related atrophy and chronic white matter ischemic change. 3. Small right frontal scalp hematoma. ED physician has reviewed this radiology report. Head Injury Course/Dx Course Of Treatment: This patient is a 87 year old female presenting to [facility] accompanied by daughter with a chief complaint of rib pain and head pain since 2 hours ago s/p mechanical fall. Patient states she went up to turn off the light when she lost her balance and hit her head on the door frame. Patient denies any loss of consciousness. Patient states that she is currently on Coumadin. An EKG, taken 0507, reveals Atrial Fibrillation (102 BPM), P waves, QRS complex, and T waves are within normal limits, T waves and intervals are normal, no ischemic changes.Rib & Chest XR reveals, per ED physician, single rib fracture, minimally displaced, associated lung appears normal. Pending official report. CT Chest reveals, per radiologist, IMPRESSION: 1. There are mildly displaced fractures of the right 10th and 11th ribs with an overlying small hemothorax. Question trace associated pneumothorax. 2. There is scattered patchy airspace opacities noted. ED physician has reviewed this radiology report. CT C-Spine reveals, per radiologist, IMPRESSION: Vertebral body height is maintained. Spinal alignment is maintained. No evidence of fracture or displacement. ED physician has reviewed this radiology report. CT Brain reveals , per radiologist, IMPRESSION: 1. Small focus of acute extra axial hemorrhage in right frontal region. 2. Age-related atrophy and chronic white matter ischemic change. 3. Small right frontal scalp hematoma. ED physician has reviewed this radiology report. Bloodwork Obtained. Urinalysis Obtained. We discussed patient care with Dr. Borden (Hospitalist) at 0350 and they agreed to admit the patient. We discussed patient care with Dr. Whitehead (Surgery) at 0530 and they agreed to follow up with patient tomorrow morning. Patient will be admitted with a dx of traumatic intracranial hemorrhage, rib fracture. The patient is agreeable with this plan. - Diagnoses Provider Diagnoses: Traumatic intracranial hemorrhage, Rib fracture, Traumatic hemothorax, Warfarin -induced coagulopathy - Physician Notifications Discussed Care Of Patient With: Elizabeth Borden - Hospitalist Time Discussed With Above Provider: 03:50 - We discussed patient care with Dr. Borden (Hospitalist) at 0350 and they agreed to admit the patient. Instructed by Provider To: Other - We discussed patient care with Dr. Whitehead ( Surgery) at 0530 and they agreed to follow up with patient tomorrow morning regarding surgery. Discharge - Sign-Out/Discharge Documenting (check all that apply): Patient Departure Patient Received Moderate/Deep Sedation with Procedure: No - Discharge Plan Condition: Stable Disposition: ADMITTED TO [facility] - Billing Disposition and Condition Condition: STABLE Disposition: Admitted to [facility] - Attestation Statements Document Initiated by Rosemary: Yes Documenting Scribe: Anne Avila Provider For Whom Rosemary is Documenting (Include Credential): MD Alicia Loibmay Attestation: Anne Ruff scribed for Jorge Yeh MD on 06/24/18 at 0153. Scribe Documentation Reviewed: Yes Provider Attestation: The documentation as recorded by the Anne jacobo accurately reflects the service I personally performed and the decisions made by Jorge chauhan MD Status of Scribe Document: Viewed
[2018-06-23] MEDS ORDERED: Morphine 4 MG/ML VIAL (1 ml) 4 MG/ML VIAL IV ONE (02:07)
[2018-06-23] MEDS ORDERED: Ondansetron INJ* 2 MG/ML VIAL IV ONE (02:08)
[2018-06-23 02:27] LABS: ABS Basophils 0 10^3/ul (0-0.2); ABS Eosinophils 0.1 10^3/ul (0-0.6); ABS Lymphocytes 0.8 10^3/ul (1.0-4.8); ABS Monocytes 0.7 10^3/ul (0-0.8); ABS Neutrophils 7.2 10^3/ul (1.5-7.7); ABS Nucleated RBC 0 10^3/ul; Eosinophil % 1.1 %; Hematocrit 40 % (33-41); Hemoglobin 13.1 g/dL (12.0-16.0); Lymphocyte % 8.8 %; Mean Corpuscular HGB Conc 32 g/dL (31-36); Mean Corpuscular Hemoglobin 30 pg (27-31); Mean Corpuscular Volume 94 fL (80-97); Mean Platelet Volume 9.6 fL (7.4-10.4); Nucleated Red Blood Cells % 0.1; Platelet Count 145 10^3/uL (150-450); Red Cell Distribution Width 17 % (10.5-15); White Blood Count 8.8 10^3/uL (3.5-10.8)
[2018-06-23 02:37] LABS: Albumin 3.8 g/dL (3.2-5.2); Calcium 9.7 mg/dL (8.6-10.3); Potassium 3.8 mmol/L (3.5-5.0); Total Bilirubin 0.7 mg/dL (0.2-1.0)
[2018-06-23 02:43] LABS: Albumin/Globulin Ratio 1.1 (1-3); BUN/Creatinine Ratio 26.3 (8-20); EGFR African American 63.9 (>60); EGFR Non-African American 52.8 (>60); Globulin 3.4 g/dL (2-4); Total Protein 7.2 g/dL (6.4-8.9)
[2018-06-23] MEDS ORDERED: Iodixanol* (CONTRAST) 320 MG/ML 100 ML SDV IV ONE (02:53)
[2018-06-23] MEDS ORDERED: Phytonadione Oral Solution* 5 MG/25 ML UDC PO ONE (03:11)
[2018-06-23 06:21] LABS: Hematocrit 44 % (33-41); Hemoglobin 13.6 g/dL (12.0-16.0)
[2018-06-23] MEDS ORDERED: HYDROmorphone INJ1* 1 MG/ML SYRINGE IV SLOW PU PRN (09:29)
[2018-06-23] MEDS ORDERED: oxyCODONE/Acetamin 5/325 MG* TAB PO PRN (09:29)
[2018-06-23] MEDS ORDERED: Acetaminophen TAB* 325 MG PO PRN (09:30)
--- NOTE | 2018-06-23 09:39 | CONS ---
CC: Dr. Michael Whitehead CONSULTATION REPORT: DATE OF CONSULT: 06/23/18 HISTORY OF PRESENT ILLNESS: Ms. Rice is an 87-year-old female who took a fall at home, banged her head and her chest and comes in to the emergency room with her daughter. She is awake and alert and coherent, able to answer questions, complains of pain in the right chest. She is on chronic warfari n therapy and does have a slightly elevated INR on arrival compatible with that. I have been asked t o see her about the rib fracture and hemothorax. PHYSICAL EXAMINATION: On examination, breathing is easy and unlabored. She denies dyspnea or diffic ulty catching her breath. She does point to the right lateral chest as the site of pain. She does h ave good aeration and good breath sounds bilaterally. She is tender in the right chest posterolatera lly roughly in the region of the 10th or 1th rib. There is no ecchymosis or open wound there. There is no palpable crepitus or fracture. IMAGING: I reviewed her CT scan which shows a small amount of fluid in the pleural space consistent with small hemothorax and there are nondisplaced rib fractures in that same region. ASSESSMENT AND PLAN: I discussed this with her and with her daughter and with Dr. Brady, and I do not think she needs a chest tube or any other procedure to drain the fluid in the chest. She does n ot need any treatment for the rib fracture other than pain control, and of course she is going to nee d incentive spirometry and pulmonary toilet to avoid the increased risk of pneumonia. She should hav e serial x-rays over the next couple of days to ensure that we are not seeing an increase in the hemo thorax or development of pneumothorax. Unless anything changes dramatically, I do not think any inva sive procedure is wanted. We will continue to follow her along with you. [id number]/[facility] #: [id number]
[2018-06-23] MEDS ORDERED: Acetaminophen TAB* 325 MG PO SCH (10:00)
--- NOTE | 2018-06-23 11:40 | HP ---
ADMITTING HISTORY AND PHYSICAL: DATE OF ADMISSION: 06/23/18 CHIEF COMPLAINT: Fall. HISTORY OF PRESENT ILLNESS: The patient is an 87-year-old lady with history of hypertension, atrial fibrillation, and peripheral arterial disease, who was last seen in our facility, admitted and discharged for congestive heart failure back in November 2017. Her daughter at bedside mentioned that since her last fall in October, she has since been "wobbly" in her feet and with complaint at least 2 times per day of feeling that she is about to pass out. She mentions that the patient was in her usual state of health until few hours prior to admission where the patient got up from watching the news and lost her balance and started stepping backwards and unfortunately lost her balance and hit the door jamb, possibly hitting her head first, although this was unwitnessed. The patient herself denies any symptoms such as chest pain, dizziness, shortness of breath, increased cough or sputum production prior to, during, and after the falls. She denies any history of loss of consciousness, although again the fall was unwitnessed. Two hours later, she was still complaining of rib pain and head pain that led to her presentation in the ED where a brain CT scan revealed a small right frontal hematoma along with rib and chest x-ray along with chest CT showing mildly displaced fracture of the right 10th and 11th ribs with an overlying small hemothorax, scattered patchy airspace opacities were seen but no definitive pneumothorax were seen. The patient was referred by Dr. Yeh to Dr. Pineda, who saw and evaluated the patient, who subsequently mentioned that he would like a repeat CT scan in 6 to 8 hours and this has been ordered. The patient was also seen by Dr. Whitehead for the rib fractures and at this time, the recommendation is to observe and control pain. In the ED, she received an FFP, vitamin K, ondansetron, and morphine. PAST MEDICAL HISTORY AND SURGICAL HISTORY: Hypertension, atrial fibrillation, glaucoma, peripheral arterial disease. Her daughter mentions that she has some valve problem, possibly the aortic valve but was found to not qualify for valve repair. She is being followed by Dr. Antoine Greer, area sales manager, from the [facility]. It is possible that she may have aortic stenosis, however, we will obtain records from outside to further confirm. Status post left lower extremity vascular procedure, status post left carotid endarterectomy, hysterectomy, bilateral cataract extraction, right arm surgery. MEDICATIONS: Her home medications are: 1. Brinzolamide. 2. Brimonidine. 3. Biotin. 4. Potassium chloride. 5. [place]-3 fatty acids. 6. Multivitamins. 7. Calcium carbonate. 8. Triamterene/HCTZ. 9. Travoprost. 10. Simvastatin. 11. Furosemide. 12. Warfarin. 13. Metoprolol. 14. Levothyroxine. ALLERGIES: NKDA. FAMILY HISTORY: Mother and father are both . Father had diabetes. The patient is unsure what her mother from. SOCIAL HISTORY: She is a lifelong smoker. She does not drink alcohol. 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 She has 4 children and lives with her granddaughter, Fariha, who is also her healthcare proxy. REVIEW OF SYSTEMS: The patient complains of some right-sided chest pain, especially on inspiration; mild right headache, other than this well controlled by pain meds. Denied any recent headaches prior to her fall, fevers, chills, nausea, vomiting, chest pain, shortness of breath, increased cough, sputum production, abdominal pain, diarrhea, constipation, pain and/or increased frequency on urination, myalgias, arthralgias, throat pain or new skin lesions. The rest of the 14-point review of systems are otherwise unremarkable. PHYSICAL EXAMINATION GENERAL APPEARANCE: The patient is awake, alert, and oriented x4, not in acute distress. VITAL SIGNS: Shows the most recent vital signs of records with blood pressure of 117/83, 97% saturation on room air and 107 per minute heart rate, from previous of 108 and 101. HEENT: Normocephalic with traumatic hematoma on the right forehead and top of scalp. PERRLA. Extraocular muscles intact. Negative for icterus. Moist oral mucosa. Negative throat erythema. NECK: Soft, supple with no cervical lymphadenopathy. No JVD. CHEST: Clear to auscultation bilaterally. Good air entry. No wheezes, rales, or rhonchi. HEART: S1, S2 within normal limits. Regular rate and rhythm. No murmurs, rubs , or gallops. ABDOMEN: Soft, nondistended, nontender. Normoactive bowel sounds x4 quadrants. EXTREMITIES: No cyanosis, clubbing, or edema. PSYCHIATRIC: No active psychosis, depression, suicidal or homicidal ideation. SKIN: Warm to touch. DIAGNOSTIC STUDIES/LAB DATA: The most recent pertinent laboratories drawn show CBC with normal WBC, H and H, platelet count is mildly low at 145. BUN and creatinine of 26 and 0.99. INR 2.0. Brain CT shows a small focus of arterial hemorrhage in the frontal region in the right and small right frontal hematoma. Rib/chest x-ray shows no evidence of pneumothorax with small pleural effusion and grossly nondisplaced right 10th and 11th rib fracture. A chest CT shows mildly displaced fracture in the right 10th and 11th rib overlying small hemothorax, scattered patchy airspace opacities. EKG shows atrial fibrillation with rate of 102 per minute with no ST segment changes. ASSESSMENT AND PLAN: The patient is an 87-year-old lady with history of hypertension, atrial fibrillation, peripheral arterial disease with possible aortic valve problem, admitted after a fall sustaining a small right frontal hematoma and mildly displaced fracture of the right 10th and 11th ribs. 1. Fall. Although, the patient mentions that she has not lost consciousness and was asymptomatic prior to the fall, her frequent complaint since October of being presyncopal for at least 2 to 10 times a day is concerning and there is some history provided by the patient's daughter that seems to suggest that the patient might have severe aortic stenosis but does not qualify for valve repair due to calcification of her valve and comorbidities. At this point, she mentions that her area sales manager is Dr. Antoine Greer of [place] and hence we will obtain records from patient. He will hold off on anticoagulation, and I have spoken briefly with patient's daughter at bedside to see whether this might be discontinued indefinitely given her risks of fall. 2. Small intracranial bleed. Appreciate Dr. Pineda' consultation and will repeat CT scan of the head as ordered and will continue to follow. 3. Tenth and eleventh rib fracture, mildly displaced with overlying hemothorax. Appreciate Dr. Whitehead's evaluation and will continue watchful waiting. We will place the patient on p.r.n. pain meds as prescribed and encourage incentive spirometry. 4. Glaucoma. We will continue home meds. 5. Hypothyroidism. Continue Synthroid and we will check TSH. 6. DVT prophylaxis. The patient is at high risk, however, she does have some evidence of small intracranial bleed and we will continue to hold Coumadin. We will place the patient on SCDs instead. 7. Disposition. For PT evaluation. [id number]/[facility] #: [id number] [facility]
[2018-06-23] MEDS ORDERED: Levothyroxine TAB* 75 MCG TAB PO ONE (13:30)
[2018-06-23] MEDS: NS 0.9% 1000 ML** 1,000 ML IV SCH (17:43)
[2018-06-23] MEDS: Latanoprost 0.005%* 2.5 ml BTL BOTH EYES SCH (20:00)
[2018-06-23] MEDS: Acetaminophen TAB* 325 MG PO SCH (20:03)
[2018-06-23] MEDS: Metoprolol Tartrate TAB* 25 MG PO SCH (20:03)
[2018-06-23] MEDS: BRINZOLAMIDE 1% LEFT EYE SCH (20:13)
[2018-06-23] MEDS: NF:Brimonidine P 0.15%(NF) OPH SOL 5 ML BTL BOTH EYES SCH (20:13)
--- NOTE | 2018-06-23 22:16 | CONS ---
CONSULTATION REPORT: DATE OF CONSULT: 06/23/18 HISTORY OF PRESENT ILLNESS: The patient is a very pleasant 87-year-old female with history of hypertension, atrial fibrillation, peripheral arterial disease, who was reported to have sustained a fall while she was at home earlier today. We were requested to see the patient by Dr. Yeh in the emergency room because of CT scan findings consistent with small right frontal possible traumatic subarachnoid hemorrhage. The patient denies loss of consciousness. She denies any neck or back pain. She denies any weakness, numbness, or tingling of her extremities with exception of pain of the right side of her thorax, which the patient of note was diagnosed with a mildly displaced fracture of the right 10th and 11th ribs with small overlying hemothorax. The patient was able to ambulate independently prior to her fall. She has a history of urinary incontinence, but no bowel incontinence. The patient is a . 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 PAST MEDICAL HISTORY: Hypertension, atrial fibrillation, glaucoma, peripheral arterial disease. SURGICAL HISTORY: Left lower extremity vascular procedure, left CEA, hysterectomy, bilateral cataract surgery, right wrist fracture repair. MEDICATIONS: 1. Brinzolamide. 2. Brimonidine. 3. Biotin. 4. Potassium chloride. 5. [place]-3 fatty acid. 6. Multivitamin. 7. Calcium carbonate. 8. Triamterene/hydrochlorothiazide. 9. Travoprost. 10. Simvastatin. 11. Furosemide. 12. Warfarin. 13. Metoprolol. 14. Levothyroxine. ALLERGIES: No known drug allergies. FAMILY HISTORY: Diabetes. SOCIAL HISTORY: Tobacco: Negative. She used to smoke. Alcohol: Negative. Recreational drugs: Negative PHYSICAL EXAM: This patient is not in acute distress. She is awake, alert, and oriented x3. Her pupils are equal and reactive. Cranial nerves II through XII are grossly intact. Motor 4 to 5/5 in all extremities. No pronator drift. Sensory is grossly intact to light touch. Deep tendon reflexes 1+ bilaterally. No clonus. No Babinski. Benjamin's negative. Straight leg test negative in the sitting position. The patient has no tenderness to palpation in the cervical, thoracic or lumbar spine. She has free range of motion of the cervical spine. DIAGNOSTIC STUDIES/LAB DATA: The patient had a CT scan of her brain revealing possible right frontal convexity subarachnoid hemorrhage. CT scan of the cervical spine revealed degenerative disease but fracture or subluxation. CT scan of the chest revealed chronic compression deformities at the lower thoracic spine. ASSESSMENT: The patient is a very pleasant 87-year-old female with history of hypertension, atrial fibrillation, peripheral arterial disease, on Coumadin, who was admitted after a reported fall with possible right frontal hematoma and mildly displaced fracture of the right 10th and 11th ribs. PLAN: The patient at this point is doing quite well. The patient was recommended to have a repeat CT scan of the head as well as recommend reversal of coagulopathy and repeat the CT scan of the brain with also x-rays of her lumbar spine. The patient had a repeat CT scan of the brain that did not reveal any changes. Based on 's report, the patient had similar CT scan from 2012, but unfortunately the films are not available for our review, but based on Dr. Willis's interpretation, this may represent calcified hemangioma. At this point, we will monitor the patient clinically and repeat a CAT scan after approximately 1 month or consider MRI of the brain. Thank you for allowing us to participate in the care of this patient. Please do not hesitate to contact our office in case you have any further questions or concerns regarding the care of this patient. [id number]/[facility] #: [id number] BERT
[2018-06-24] MEDS ORDERED: NS 0.9% 500 ML* 500 ML IV ONE (05:39)
[2018-06-24] MEDS ORDERED: Levothyroxine TAB* 88 MCG TAB PO SCH (06:00)
[2018-06-24 06:41] LABS: INR 2.2 (0.77-1.02)
[2018-06-24 06:42] LABS: ABS Basophils 0 10^3/ul (0-0.2); ABS Eosinophils 0.2 10^3/ul (0-0.6); ABS Lymphocytes 0.7 10^3/ul (1.0-4.8); ABS Monocytes 0.6 10^3/ul (0-0.8); ABS Neutrophils 3.7 10^3/ul (1.5-7.7); ABS Nucleated RBC 0 10^3/ul; Eosinophil % 3.1 %; Hematocrit 36 % (33-41); Hemoglobin 11.4 g/dL (12.0-16.0); Lymphocyte % 12.9 %; Mean Corpuscular HGB Conc 31 g/dL (31-36); Mean Corpuscular Hemoglobin 30 pg (27-31); Mean Corpuscular Volume 97 fL (80-97); Mean Platelet Volume 9.7 fL (7.4-10.4); Nucleated Red Blood Cells % 0; Platelet Count 122 10^3/uL (150-450); Red Blood Count 3.74 10^6 /uL (3.70-4.87); Red Cell Distribution Width 18 % (10.5-15); White Blood Count 5.1 10^3/uL (3.5-10.8)
[2018-06-24 06:55] LABS: Albumin 3.6 g/dL (3.2-5.2); Albumin/Globulin Ratio 1.2 (1-3); BUN/Creatinine Ratio 20.4 (8-20); Calcium 8.6 mg/dL (8.6-10.3); EGFR African American 40.5 (>60); EGFR Non-African American 33.5 (>60); Magnesium 1.9 mg/dL (1.9-2.7); Potassium 4.9 mmol/L (3.5-5.0); Total Bilirubin 0.6 mg/dL (0.2-1.0); Total Protein 6.6 g/dL (6.4-8.9)
[2018-06-24] MEDS: NS 0.9% 1000 ML** 1,000 ML IV SCH (07:32)
[2018-06-24] MEDS: BRINZOLAMIDE 1% LEFT EYE SCH ×2 (07:54→20:11)
[2018-06-24] MEDS: NF:Brimonidine P 0.15%(NF) OPH SOL 5 ML BTL BOTH EYES SCH ×2 (07:54→20:11)
[2018-06-24] MEDS: Acetaminophen TAB* 325 MG PO SCH ×2 (08:10→20:07)
[2018-06-24] MEDS: Metoprolol Tartrate TAB* 25 MG PO SCH ×2 (08:11→20:08)
[2018-06-24] MEDS ORDERED: Atorvastatin* 10 MG TAB PO SCH (09:00)
[2018-06-24] MEDS ORDERED: Potassium Chlor TAB* 10 MEQ TAB.ER PO SCH (09:00)
--- NOTE | 2018-06-24 10:11 | PN ---
Progress Note - Progress Note Date of Service: 06/24/18 Note: HD#2 s/p fall Reports some SOB and pain in R ribs. No N/V/abd pain. Vital Signs Temp 97.4 F 06/24/18 07:27 Pulse 111 06/24/18 07:27 Resp 20 06/24/18 07:27 BP 128/67 06/24/18 07:27 Pulse Ox 97 06/24/18 07:27 Intake & Output 06/23/18 06/24/18 06/24/18 18:59 06:59 18:59 Intake Total 0 741 0 Output Total 200 Balance 0 541 0 Weight 119 lb 12.8 oz Intake: IV Fluids 741 NS (0.9%) 741 Oral 0 0 0 Output: [place] 200 Other: Estimated Void Small # Bowel Movements 0 # Voids 0 Gen: sitting up in bed, awake/alert; NAD HEENT: eccymosis R eye Lungs: Decr BS R side with dullness to percussion R chest. Abd: soft and NT A/P: R rib fx with MORIS. CXR pending. Suspect will need drainage (pigtail v. large bore) Will f/u.
--- NOTE | 2018-06-24 11:58 | PN ---
Progress Note - Progress Note Date of Service: 06/24/18 SOAP: Subjective: []No events ON. Patient is doing well. Objective: []VSS AAOx3, LOUIE, CN II-XII grossly intact Motor 4-5/5 all extremities Sensory grossly intact to light touch Assessment: [] 87 yof fall, possible TBI Plan: []Monitor VS, Neurochecks Would consider MRI of brain to exclude the presence of mass lesion as suggested by Dr Roberts. If family or patient not interested in pursuing an MRI, then repeat CT head in one month and follow up in office. Appreciate IM, Surgery care. Hillary Pineda MD
[2018-06-24] MEDS: Gabapentin CAP(*) 100 MG PO SCH ×2 (13:11→20:07)
--- NOTE | 2018-06-24 14:54 | PN ---
Subjective Date of Service: 06/24/18 Interval History: Pt seen and examined. Meds and labs reviewed. CC: Pain post fall ROS: Denied LUCERO/dizziness, F/C, N/V, CP, SOB, increased cough, sputum production , abd pain, diarrhea, constipation, dysuria, myalgias, arthralgias, throat pain , and new skin lesions. The rest of the 14 point ROS are unremarkable. PHYSICAL EXAM: GEN APPEARANCE: Awake, not in acute distress HEENT: NC/w/traumatic hematoma o the right forehead and periorbital discoloration, PERRLA, moist oral mucosa, (-) throat erythema NECK: Soft, supple, (-) cervical LAD, (-)JVD HEART: S1S2 WNL, RRR, No MRG CHEST: CTA, BL, GAE, No W/R/R ABD: Soft, ND/NT, NABS 4x Q EXT: No C/C/E SKIN: Warm to touch PSYCH: No active psychosis, hallucinations, depression, SI/HI Objective Active Medications: Acetaminophen (Tylenol Tab*) 650 mg PO Q6H PRN PRN Reason: PAIN Acetaminophen (Tylenol Tab*) 975 mg PO BID [facility] Last Admin: 06/24/18 08:10 Dose: 975 mg Atorvastatin Calcium (Lipitor*) 10 mg PO DAILY [facility] Last Admin: 06/24/18 08:11 Dose: 10 mg Brimonidine Tartrate (Alphagan P 0.15%(Nf)) 1 drop BOTH EYES BID [facility] Last Admin: 06/24/18 07:54 Dose: Not Given Brinzolamide (Azopt 1% Ophth Suyapa(Nf)) 1 drop LEFT EYE BID [facility] Last Admin: 06/24/18 07:54 Dose: Not Given Gabapentin (Neurontin Cap(*)) 100 mg PO TID [facility] Last Admin: 06/24/18 13:11 Dose: 100 mg Hydromorphone HCl (Dilaudid Inj1s*) 0.5 mg IV SLOW PU Q6H PRN PRN Reason: PAIN Sodium Chloride (Ns 0.9% 1000 Ml) 1,000 mls @ 75 mls/hr IV PER RATE [facility] Stop: 06/25/18 05:49 Last Admin: 06/24/18 07:32 Dose: 75 mls/hr Latanoprost (Xalatan 0.005%*) 1 drop BOTH EYES BEDTIME JOSE ALEJANDRO; Protocol Last Admin: 06/23/18 20:00 Dose: 1 drop Levothyroxine Sodium (Synthroid Tab*) 75 mcg PO Q48H JOSE ALEJANDRO Levothyroxine Sodium (Synthroid Tab*) 88 mcg PO Q48H JOSE ALEJANDRO Last Admin: 06/24/18 04:58 Dose: 88 mcg Metoprolol Tartrate (Lopressor Tab*) 12.5 mg PO BID [facility] Last Admin: 06/24/18 08:11 Dose: 12.5 mg Oxycodone/Acetaminophen (Percocet 5/325 Tab*) 1 tab PO Q6H PRN PRN Reason: PAIN Potassium Chloride (Klor Con Er Tab*) 10 meq PO DAILY [facility] Last Admin: 06/24/18 08:11 Dose: 10 meq Vital Signs - 8 hr 06/24/18 06/24/18 06/24/18 07:27 08:00 10:38 Temperature 97.4 F 97.7 F Pulse Rate 111 89 Respiratory 20 18 20 Rate Blood Pressure 128/67 103/63 (mmHg) O2 Sat by Pulse 97 97 Oximetry 06/24/18 13:11 Temperature Pulse Rate Respiratory 18 Rate Blood Pressure (mmHg) O2 Sat by Pulse Oximetry Oxygen Devices in Use Now: Nasal Cannula Result Diagrams: 06/24/18 06:24 06/24/18 06:24 Assess/Plan/Problems-Billing Assessment: - Patient Problems (1) Fall Current Visit: Yes Status: Acute Comment: -Still waiting on [facility] records to see actual cardiac problem pt described on admx -From description, pt may have severe -Placed pt on Gabapentin low dose for pain control synergy (2) Intracranial bleed Current Visit: Yes Status: Acute Code(s): I62.9 - NONTRAUMATIC INTRACRANIAL HEMORRHAGE, UNSPECIFIED SNOMED Code(s): 6692178 Comment: #Small IC bleed: -Repeat CT yesterday not significantly different than presenting one -Appreciate NeuroSx F/U -For MRI of brain on Tuesday to exclude presence of mass lesion as suggested by Dr. Roberts (3) Rib fractures Current Visit: Yes Status: Acute Code(s): S22.39XA - FRACTURE OF ONE RIB, UNSP SIDE, INIT FOR CLOS FX SNOMED Code(s): 75839191 Comment: #10th to 11th rib fx: -Mildly displaced with underlying hemothorax -NAD on repeat CXR today (4) Glaucoma Current Visit: Yes Status: Acute Code(s): H40.9 - UNSPECIFIED GLAUCOMA SNOMED Code(s): 12841619 Comment: -Continue current meds (5) Hypothyroidism Current Visit: Yes Status: Acute Code(s): E03.9 - HYPOTHYROIDISM, UNSPECIFIED SNOMED Code(s): 77284881 Comment: -Continue Synthroid -TSH WNL (6) DVT prophylaxis Current Visit: No Status: Acute Code(s): DRY8792 - SNOMED Code(s): 853594322 Comment: -Continue SCDs given above Status and Disposition: -For D/C home w/home PT when ready -Awaiting MRI of head
[2018-06-24] MEDS: Latanoprost 0.005%* 2.5 ml BTL BOTH EYES SCH (20:11)
[2018-06-24] MEDS ORDERED: NS 0.9% 250 ML* 250 ML IV SCH (22:00)
--- NOTE | 2018-06-24 22:04 | PN ---
Hospitalist Progress Note Date of Service: 06/24/18 called for low urine output 200 cc for today will give a 250 cc bolus over 2 hours and then revaluate. Will use caution on continued hydration as the patient has had congestive heart failure in the past last in 11/2017.
[2018-06-25] MEDS ORDERED: Ondansetron INJ* 2 MG/ML VIAL IV PRN (00:01)
[2018-06-25 00:37] VITALS: BP 128/59
--- NOTE | 2018-06-25 03:01 | PN ---
Hospitalist Progress Note Date of Service: 06/25/18 87 yo F with recent fall on Coumadin c/b intracranial hemmorhoage s/p FFP, Vit K , also with SANDI on CKD, CHF, broken ribs with hemothorax, who sat up this morning around 2:00AM and c/o nausea, then went back to sleep, nurse was going to give antiemetic but within minutes of her initial complaint pt had 3 second pause on tele, then returned to sinus joaquín on tele but in reality had PEA. Evaluated pt at 2:15AM, unresponsive, pulseless, no heart rate or respiratory rate, no corneal reflex, pronounced at this time. Family, daughter Fariha, with whom she lives, was called and discussed her , very quick, likely related to intracranial pressure vs overwhelming comorbid conditions. Answered all questions, they will come in to see her and plan on cremation. Discharge summary dictated and certificate to be completed online.
[2018-06-25] MEDS ORDERED: Levothyroxine TAB* 75 MCG TAB PO SCH (06:00)
--- NOTE | 2018-06-25 10:23 | DS ---
DISCHARGE SUMMARY: DATE OF ADMISSION: 06/23/18 DATE OF DISCHARGE: 06/25/18 PRIMARY CARE PROVIDER: Fabián Lamb MD. DISPOSITION AT TIME OF DISCHARGE: . CODE STATUS: DNR. PRIMARY DIAGNOSIS: Intracranial hemorrhage. SECONDARY DIAGNOSES: 1. Status post mechanical fall. 2. Rib fracture. 3. Hemothorax. 4. Heart failure with preserved ejection fraction. 5. Severe aortic stenosis. 6. Hypertension. 7. Glaucoma. 8. Peripheral arterial disease. 9. Hemothorax secondary to rib fracture. MEDICATIONS ON DISCHARGE: None. HISTORY OF PRESENT ILLNESS AND HOSPITAL COURSE: This is an 87-year-old female, who presented to the emergency room on 06/23/18, status post mechanical fall. The patient had an unwitnessed fall and str uck her head. Her daughter brought her to the emergency room where she presented with displaced frac ture of right tenth and eleventh rib with hemothorax as well as right frontal hematoma. No surgery w as consulted, who opted for conservative management and surgery was consulted for rib fractures, who felt that conservative management should also be pursued. The patient is on Coumadin and in the [facility] room, she received FFP, vitamin K, and was admitted to the floor for further monitoring. On hospital day 1, the patient was managed with pain control and monitoring. She had a repeat CT sca n that showed stable right frontal hematoma, although possible extraaxial hemorrhage. Chest x-rays w ere repeated on hospital day 2 that continued to show pulmonary vascular congestion and mild intersti tial edema with small pleural effusions. Her hospital course was marked by decreased urine output on hospital day 2, which was only minimally responsive to gentle fluid boluses. The decision to hold b oluses given her history of heart failure with preserved ejection fraction given she had received abo ut 2.5 L over 48 hours was made and the patient had about 200 cc of urine over last 24 hours of her h ospitalization. On 06/25/18, the patient was in her usual state of health. She sat up at around 2 a .m. and reported that she felt nauseous. The nurse called the hospitalist, who instructed the nurse give an antiemetic. The nurse left the room to go procure ondansetron and on the monitor the patient went into 3-second pause and then returned to sinus bradycardia. The hospitalist was called to eval uate the patient and the patient was found to have pulseless electrical activity, unresponsive with n o heart rate, no respiratory rate, no corneal reflux, and was pronounced at 2:15 a.m. She wa s DNR. Her family called and discussed her relatively quick demise, which is possibly related to her intracranial hemorrhage versus other multimorbidity, cannot rule out vomiting and aspiration or cont ributions of her SANDI on CKD. The family was understanding and came to visit with the patient. She p lans on being cremated and will be discharged as in the care of her family. All questions we re answered. TIME SPENT: Twenty minutes was spent in the discharge of this patient with all of that spent at the bedside of the patient providing direct patient care. Her family are understanding of the circumstan rainer and her relatively very quick demise and lack of resuscitation, which was consistent with the pat iefrench and her family's wishes. They have no further questions at time of discharge. [id number] #: [id number]
== END 2018-06-25 02:15 | disposition expired | DRG 930 ==
LOC: ED 00:40 → MEDTELE 10:11
PROVIDERS: ADMIT Student in an Organized Health Care Education/Training Program; ATTEND Internal Medicine
PROC: 30233K1 Transfusion of Nonautologous Frozen Plasma into Peripheral Vein, Percutaneous Approach (ICD-10-PCS; principal; 2018-06-23)
DX: S06.6X0A Traumatic subarachnoid hemorrhage without loss of consciousness, initial encounter (principal); S27.1XXA Traumatic hemothorax, initial encounter; N17.9 Acute kidney failure, unspecified; S22.41XA Multiple fractures of ribs, right side, initial encounter for closed fracture; I13.0 Hypertensive heart and chronic kidney disease with heart failure and stage 1 through stage 4 chronic kidney disease, or unspecified chronic kidney disease; I48.91 Unspecified atrial fibrillation; I50.9 Heart failure, unspecified; I73.9 Peripheral vascular disease, unspecified; I35.0 Nonrheumatic aortic (valve) stenosis; N18.9 Chronic kidney disease, unspecified; Z66 Do not resuscitate; R79.1 Abnormal coagulation profile; H40.9 Unspecified glaucoma; E03.9 Hypothyroidism, unspecified; W18.30XA Fall on same level, unspecified, initial encounter; Y92.009 Unspecified place in unspecified non-institutional (private) residence as the place of occurrence of the external cause; Z79.01 Long term (current) use of anticoagulants; Z79.899 Other long term (current) drug therapy; Z88.6 Allergy status to analgesic agent; Z83.3 Family history of diabetes mellitus; R32 Unspecified urinary incontinence; Z87.891 Personal history of nicotine dependence
CPT/HCPCS: 36415; 70450; 71046; 71260; 72110; 72125; 80053; 83735; 84100; 84443; 85014; 85018; 85025; 85610; 86900; 86901; 86927; 93005; 99285; A9270-GY; G8978-GP-CL; G8979-GP-CJ; J2270; J2405; P9017; Q9967